=== PATIENT | male | born 1995 | race Caucasian/White ===

== ENCOUNTER 2018-01-18 19:19 | Emergency (ER) | payer BC ==
[~2018-01-18] VITALS: Ht 167.6 cm; Wt 112.0 kg
[2018-01-18 19:35] VITALS: Ht 167.6 cm; Wt 112.0 kg
[2018-01-18 20:43] VITALS: BP 141/95
== END 2018-01-18 20:43 | disposition home or self-care (01) ==
LOC: ED 19:19
DX: G44.209 Tension-type headache, unspecified, not intractable (principal)